=== PATIENT | female | born 1960 | race African-American/Black ===

== ENCOUNTER 2023-02-21 03:29 | Emergency (ER) | payer BC ==
[2023-02-21 03:47] VITALS: BP 156/94; PULSE 130; RESP 18; TEMP 98.3; BMI 25.0
[2023-02-21] MEDS ORDERED: SODIUM CHLORIDE 1,000 ML IV ONE (03:55)
[2023-02-21] MEDS ORDERED: ONDANSETRON 4 MG/2 ML VIAL IVPUSH ONE (03:55)
[2023-02-21] MEDS ORDERED: PANTOPRAZOLE SODIUM 40 MG VIAL ONE (04:00)
[2023-02-21] MEDS ORDERED: ONDANSETRON 4 MG/2 ML VIAL ONE (04:03)
[2023-02-21] MEDS ORDERED: PANTOPRAZOLE SODIUM 40 MG VIAL IVPUSH ONE (04:03)
[2023-02-21] MEDS ORDERED: PANTOPRAZOLE SODIUM 40 MG VIAL IVPB ONE (04:05)
[2023-02-21] MEDS: PANTOPRAZOLE SODIUM 40 MG VIAL IVPUSH ONE ×2 (04:12→04:14)
[2023-02-21 04:44] LABS: HEMATOCRIT 43.6 % (32.4-45.2); HEMOGLOBIN 14.2 GM/dL (10.7-15.3); MCH 29.7 pg (25.7-33.7); MCHC 32.7 g/dl (32.0-36.0); MEAN CELL VOLUME 90.7 fl (80-96); MEAN PLT VOLUME 11.5 fl (7.5-11.1); PLATELET COUNT 180 10^3/uL (134-434); RDW 15.5 % (11.6-15.6)
[2023-02-21 05:21] LABS: POTASSIUM 3.8 mmol/L (3.5-5.1)
[2023-02-21 05:23] LABS: CALCIUM 9.5 mg/dL (8.5-10.1)
[2023-02-21 05:24] LABS: ALBUMIN 4.1 g/dl (3.4-5.0); BLOOD UREA NITROGEN 19.8 mg/dL (7-18)
[2023-02-21 05:28] LABS: BILIRUBIN,TOTAL 0.4 mg/dL (0.2-1); TOT PROT 7.6 g/dl (6.4-8.2)
== END 2023-02-21 06:04 | disposition home or self-care (01) ==
LOC: FER 03:29
PROC: 3E033NZ Introduction of Analgesics, Hypnotics, Sedatives into Peripheral Vein, Percutaneous Approach (ICD-10-PCS; principal; 2023-02-21)
PROC: 3E0337Z Introduction of Electrolytic and Water Balance Substance into Peripheral Vein, Percutaneous Approach (ICD-10-PCS; 2023-02-21)
DX: R10.13 Epigastric pain (principal); R11.2 Nausea with vomiting, unspecified
CPT/HCPCS: 36415; 80053; 82550; 83690; 84484; 85027; 93005; 99284-25